=== PATIENT | female | born 1985 | race Caucasian/White ===

== ENCOUNTER 2017-09-12 11:30 | Emergency (ER) | payer BC ==
[~2017-09-12] VITALS: Ht 154.9 cm; Wt 56.7 kg
[~2017-09-12 11:30] MED LIST: ABILIFY2 MG PO; CYMBALTA30 MG PO; LAMICTAL200 MG PO; VALTREX1000 MG PO
[2017-09-12 12:00] LABS: HEMATOCRIT 37.8 % (36.0-46.0); HEMOGLOBIN 12.4 G/DL (11.9-15.5); MCH 31.1 PG (29.0-34.0); MCHC 32.8 G/DL (30.0-36.0); MCV 94.7 FL (83-99); PLATELET COUNT 244 K/uL (156-360); RBC DIS.WIDTH-CV 12.4 % (11.8-14.6); RBC DIS.WIDTH-SD 43.5 % (39-53); RED BLOOD COUNT 3.99 M/uL (3.80-5.20); WHITE BLOOD COUNT 11.6 K/uL (4.1-10.2)
[2017-09-12 12:07] LABS: ALBUMIN 4.2 g/dL (3.2-4.8)
[2017-09-12 12:08] LABS: CHLORIDE 105 mEq/L (99-109); POTASSIUM 3.7 mEq/L (3.7-5.4); SODIUM 140 mEq/L (136-147)
[2017-09-12 12:10] LABS: GLUCOSE 108 mg/dL (70-99); TOTAL PROTEIN 6.2 g/dL (6.4-8.3)
[2017-09-12 12:12] LABS: TOTAL BILIRUBIN 0.3 mg/dL (0.0-1.0)
[2017-09-12 12:13] LABS: ALKALINE PHOSPHATASE 57 IU/L (3-129)
[2017-09-12 12:14] LABS: CREATININE 0.6 mg/dL (0.6-1.3); GFR ESTIMATE (CALCULATED) > 59 mL/min/
[2017-09-12 12:15] LABS: AST (GOT) 13 IU/L (2-34); UREA NITROGEN (BUN) 14 mg/dL (9-23)
[2017-09-12 12:17] LABS: ALT (GPT) 10 IU/L (3-49)
[2017-09-12 12:23] LABS: QUANTITATIVE HCG < 4.0 MIU/ML
[2017-09-12 13:21] LABS: APPEARANCE CLEAR ((CLEAR)); BILIRUBIN NEGATIVE; BLOOD NEGATIVE; COLOR YELLOW ((YELLOW)); GLUCOSE (STRIP) NEGATIVE; KETONES NEGATIVE; LEUKOCYTES NEGATIVE; NITRITE NEGATIVE; PROTEIN (STRIP) NEGATIVE; SPECIFIC GRAVITY 1.028 (1.000-1.030); UCUL ADDED? NO; UROBILINOGEN 0.2 MG/DL (0.2-1.0)
[2017-09-12] MEDS ORDERED: ZOFRAN ODT4 MG PO (16:40)
[2017-09-12 16:49] VITALS: BP 132/82
== END 2017-09-12 16:50 | disposition home or self-care (01) ==
LOC: EME 11:30
DX: R10.31 Right lower quadrant pain (principal); R11.2 Nausea with vomiting, unspecified; Z87.442 Personal history of urinary calculi; F17.200 Nicotine dependence, unspecified, uncomplicated
CPT/HCPCS: 74176; 80053; 81003; 84702; 85027; 99281; 99283

== ENCOUNTER 2018-02-11 22:03 | Emergency (ER) | payer BC ==
[~2018-02-11] VITALS: Ht 154.9 cm; Wt 55.8 kg
[~2018-02-11 22:03] MED LIST changes: +ZOFRAN ODT4 MG PO
[2018-02-11 23:07] LABS: HEMATOCRIT 37.8 % (36.0-46.0); HEMOGLOBIN 12.9 G/DL (11.9-15.5); MCH 31.3 PG (29.0-34.0); MCHC 34.1 G/DL (30.0-36.0); MCV 91.7 FL (83-99); PLATELET COUNT 228 K/uL (156-360); RBC DIS.WIDTH-CV 12.1 % (11.8-14.6); RBC DIS.WIDTH-SD 40.8 % (39-53); RED BLOOD COUNT 4.12 M/uL (3.80-5.20); WHITE BLOOD COUNT 15.1 K/uL (4.1-10.2)
[2018-02-11 23:17] LABS: ALBUMIN 4.1 g/dL (3.2-4.8); CHLORIDE 104 mEq/L (99-109); POTASSIUM 3.6 mEq/L (3.7-5.4); SODIUM 138 mEq/L (136-147)
[2018-02-11 23:19] LABS: GLUCOSE 95 mg/dL (70-99); TOTAL PROTEIN 6.6 g/dL (6.4-8.3)
[2018-02-11 23:21] LABS: TOTAL BILIRUBIN 0.3 mg/dL (0.0-1.0)
[2018-02-11 23:23] LABS: ALKALINE PHOSPHATASE 56 IU/L (3-129); CREATININE 0.7 mg/dL (0.6-1.3); GFR ESTIMATE (CALCULATED) > 59 mL/min/
[2018-02-11 23:24] LABS: UREA NITROGEN (BUN) 12 mg/dL (9-23)
[2018-02-11 23:25] LABS: AST (GOT) 12 IU/L (2-34)
[2018-02-11 23:26] LABS: ALT (GPT) 11 IU/L (3-49)
[2018-02-11 23:31] LABS: QUANTITATIVE HCG < 4.0 MIU/ML
[2018-02-12] MEDS ORDERED: PERCOCET 5/31 TABLET PO (00:29)
[2018-02-12] MEDS ORDERED: KEFLEX500 MG PO (00:29)
[2018-02-12 00:39] VITALS: BP 126/88
[2018-02-12 02:30] LABS: ERTH.SED.RATE 20 MM/HR (0-20)
== END 2018-02-12 00:41 | disposition home or self-care (01) ==
LOC: EME 22:03
PROVIDERS: Physician Assistant
DX: N60.01 Solitary cyst of right breast (principal); N61.0 Mastitis without abscess; F17.200 Nicotine dependence, unspecified, uncomplicated
CPT/HCPCS: 76642; 80053; 84702; 85027; 85651; 86140; 99281; 99284